=== PATIENT | female | born 1935 | race Caucasian/White ===

== ENCOUNTER 2018-12-22 10:18 | Observation (INO) | payer MEDICARE, OTHER ==
[2018-12-22 11:16] LABS: ADD MAN DIFF? NO
[2018-12-22 11:21] LABS: BASOPHILS % 0.9 % (0.0-2.0); EOSINOPHILS # 0.1 10^3/ul (0.0-0.5); HEMATOCRIT 37.4 % (37.0-47.0); HEMOGLOBIN 12.6 g/dl (12.0-16.0); LYMPHOCYTES % 28.9 % (15.0-51.0); MEAN CORPUSCULAR HEMOGLOBIN 32.5 pg (29.0-33.0); MEAN CORPUSCULAR HGB CONC 33.7 g/dl (32.0-37.0); MEAN CORPUSCULAR VOLUME 96.4 fl (82.0-101.0); MEAN PLATELET VOLUME 9.6 fl (7.4-10.4); MONOCYTE # 0.3 10^3/ul (0.3-0.9); NEUTROPHIL # 2.1 10^3/ul (1.6-7.5); NEUTROPHILS % 59.9 % (39.0-77.0); PLATELET COUNT 214 10^3/UL (140-415); RED BLOOD COUNT 3.88 10^6/ul (4.20-5.40); RED CELL DISTRIBUTION WIDTH 13.5 % (11.5-14.5)
[2018-12-22 11:21] LABS: WHITE BLOOD COUNT 3.5 10^3/ul (4.8-10.8)
[2018-12-22 11:42] LABS: PROTIME 12.3 Sec (11.9-14.9)
[2018-12-22 11:43] LABS: PARTIAL THROMBOPLASTIN TIME 29.9 Sec (23.0-35.0)
[2018-12-22 11:46] LABS: ALANINE AMINOTRANSFERASE 24 IU/L (13-69); ALBUMIN 3.8 g/dl (3.3-4.9); ALBUMIN/GLOBULIN RATIO 1.35; ALKALINE PHOSPHATASE 61 IU/L (42-121); AMYLASE 103 U/L (11-123); ANION GAP 7 (5-13); ASPARTATE AMINO TRANSFERASE 23 IU/L (15-46); BILIRUBIN,INDIRECT 0.5 mg/dl (0-1.1); BILIRUBIN,TOTAL 0.5 mg/dl (0.2-1.3); BLOOD UREA NITROGEN 17 mg/dl (7-20); CALCIUM 9.8 mg/dl (8.4-10.2); CARBON DIOXIDE 25 mmol/L (21-31); CHLORIDE 110 mmol/L (97-110); CREATINE KINASE 91 IU/L (23-200); CREATININE 0.81 mg/dl (0.44-1.00); GLUCOSE 101 mg/dl (70-220); LIPASE 163 U/L (23-300); POTASSIUM 3.7 mmol/L (3.5-5.1); SODIUM 142 mmol/L (135-144); TOTAL PROTEIN 6.6 g/dl (6.1-8.1)
[2018-12-22 11:54] LABS: B-TYPE NATRIURETIC PEPTIDE 375 PG/ML (0-450); CK INDEX 1.9; CK-MB 1.76 ng/ml (0.0-2.4)
[2018-12-22 11:59] LABS: TROPONIN-I < 0.012 ng/ml (0.000-0.120)
[2018-12-22] MEDS ORDERED: NITROGLYCERIN (SL) 0.4 MG TAB SL (13:00)
[2018-12-22] MEDS: ASPIRIN 325 MG TAB PO (13:27)
[2018-12-22] MEDS ORDERED: ONDANSETRON 4 MG INJ IV ×2 (13:30→16:00)
[2018-12-22] MEDS ORDERED: ACETAMINOPHEN 325 MG TAB PO ×2 (13:30→16:00)
[2018-12-22 14:49] LABS: ADD UMIC YES; UR ASCORBIC ACID NEGATIVE (NEGATIVE); UR BACTERIA FEW /HPF (NONE SEEN); UR BILIRUBIN (Dip) NEGATIVE (NEGATIVE); UR BLOOD (Dip) 1+ mg/dL (NEGATIVE); UR CLARITY CLEAR (CLEAR); UR COLOR STRAW (YELLOW); UR GLUCOSE (Dip) NEGATIVE (NEGATIVE); UR KETONES (Dip) TRACE mg/dL (NEGATIVE); UR LEUKOCYTE ESTERASE (Dip) TRACE Leu/ul (NEGATIVE); UR NITRITE (Dip) NEGATIVE (NEGATIVE); UR RBC 1 /HPF (0-5); UR SPECIFIC GRAVITY (Dip) 1.004 (1.003-1.030); UR TOTAL PROTEIN (Dip) NEGATIVE (NEGATIVE); UR UROBILINOGEN (Dip) NEGATIVE (NEGATIVE); UR WBC 0 /HPF (0-5)
[2018-12-22] MEDS ORDERED: NACL 0.9% 3 ML SYG IV (16:00)
[2018-12-22] MEDS ORDERED: IBUPROFEN 800 MG TAB PO (16:00)
[2018-12-22] MEDS ORDERED: [UNRECOGNIZED DRUG - REMARK] XX (17:30)
[2018-12-22] MEDS: NITROGLYCERIN (SL) 0.4 MG TAB SL ×2 (18:27→23:33)
[2018-12-22 18:53] LABS: CREATINE KINASE 87 IU/L (23-200)
[2018-12-22 19:05] LABS: CK INDEX 1.8; CK-MB 1.53 ng/ml (0.0-2.4)
[2018-12-22 19:08] LABS: TROPONIN-I < 0.012 ng/ml (0.000-0.120)
[2018-12-22 19:24] LABS: TROPONIN-I < 0.012 ng/ml (0.000-0.120)
[2018-12-22] MEDS: ATORVASTATIN 10 MG TAB PO (20:18)
[2018-12-22] MEDS: CILOSTAZOL 100 MG TAB PO (20:18)
[2018-12-22] MEDS: CALCIUM CARBONATE 1.25 GM TAB PO (20:18)
[2018-12-22] MEDS: DOCUSATE SODIUM 250 MG CAP PO (20:18)
[2018-12-22] MEDS: METOPROLOL 25 MG TAB PO (21:44)
[2018-12-23] MEDS ORDERED: hydrALAzine 20 MG INJ IV (01:00)
[2018-12-23 02:24] LABS: CREATINE KINASE 67 IU/L (23-200)
[2018-12-23 02:37] LABS: CK INDEX 1.8; CK-MB 1.23 ng/ml (0.0-2.4); TROPONIN-I < 0.012 ng/ml (0.000-0.120)
[2018-12-23] MEDS: PANTOPRAZOLE (EC) 40 MG TAB PO (05:22)
[2018-12-23 06:09] LABS: ADD MAN DIFF? NO
[2018-12-23 06:16] LABS: WHITE BLOOD COUNT 4.9 10^3/ul (4.8-10.8)
[2018-12-23 06:16] LABS: BASOPHILS % 0.6 % (0.0-2.0); EOSINOPHILS # 0.1 10^3/ul (0.0-0.5); EOSINOPHILS % 1.8 % (0.0-7.0); HEMATOCRIT 36.7 % (37.0-47.0); HEMOGLOBIN 12.4 g/dl (12.0-16.0); LYMPHOCYTES % 20.2 % (15.0-51.0); MEAN CORPUSCULAR HGB CONC 33.8 g/dl (32.0-37.0); MEAN CORPUSCULAR VOLUME 97.6 fl (82.0-101.0); MEAN PLATELET VOLUME 9.8 fl (7.4-10.4); MONOCYTE # 0.4 10^3/ul (0.3-0.9); MONOCYTES % 8.1 % (0.0-11.0); NEUTROPHIL # 3.4 10^3/ul (1.6-7.5); NEUTROPHILS % 68.9 % (39.0-77.0); PLATELET COUNT 222 10^3/UL (140-415); RED BLOOD COUNT 3.76 10^6/ul (4.20-5.40); RED CELL DISTRIBUTION WIDTH 13.3 % (11.5-14.5)
[2018-12-23 06:45] LABS: CK-MB 0.95 ng/ml (0.0-2.4); HEMOGLOBIN A1C 5.5 % (0-5.9)
[2018-12-23 06:50] LABS: ALANINE AMINOTRANSFERASE 21 IU/L (13-69); ALBUMIN 3.6 g/dl (3.3-4.9); ALBUMIN/GLOBULIN RATIO 1.56; ALKALINE PHOSPHATASE 50 IU/L (42-121); ANION GAP 5 (5-13); ASPARTATE AMINO TRANSFERASE 22 IU/L (15-46); BILIRUBIN,INDIRECT 0.4 mg/dl (0-1.1); BILIRUBIN,TOTAL 0.4 mg/dl (0.2-1.3); BLOOD UREA NITROGEN 15 mg/dl (7-20); CALCIUM 10.1 mg/dl (8.4-10.2); CARBON DIOXIDE 28 mmol/L (21-31); CHLORIDE 107 mmol/L (97-110); CHOL/HDL RATIO 2.7 RATIO; CHOLESTEROL 138 mg/dl (100-200); CREATININE 0.84 mg/dl (0.44-1.00); GLUCOSE 112 mg/dl (70-220); HDL CHOLESTEROL 51 mg/dl (33-92); LDL CHOLESTEROL,CALCULATED 69 mg/dl; MAGNESIUM 1.9 mg/dl (1.7-2.5); POTASSIUM 4.1 mmol/L (3.5-5.1); SODIUM 140 mmol/L (135-144); TOTAL PROTEIN 5.9 g/dl (6.1-8.1); TRIGLYCERIDES 90 mg/dl (0-149)
[2018-12-23] MEDS: METHOTREXATE 2.5 MG TAB PO ×2 (08:57→12:28)
[2018-12-23] MEDS: ASPIRIN (EC) 81 MG TAB PO (08:58)
[2018-12-23] MEDS: TOLTERODINE 2 MG TAB PO (08:59)
[2018-12-23] MEDS: LOSARTAN 50 MG TAB PO (08:59)
[2018-12-23] MEDS: METOPROLOL 25 MG TAB PO ×2 (09:00→21:14)
[2018-12-23] MEDS: CALCIUM CARBONATE 1.25 GM TAB PO ×2 (09:00→21:14)
[2018-12-23] MEDS: CHOLECALCIFEROL 1,000 UNIT TAB PO (09:00)
[2018-12-23] MEDS: DOCUSATE SODIUM 250 MG CAP PO ×2 (09:01→21:13)
[2018-12-23] MEDS: CILOSTAZOL 100 MG TAB PO ×2 (09:01→21:14)
[2018-12-23] MEDS: FOLIC ACID 1 MG TAB PO (09:01)
[2018-12-23] MEDS: ATORVASTATIN 10 MG TAB PO (21:13)
[2018-12-24] MEDS: PANTOPRAZOLE (EC) 40 MG TAB PO (05:22)
[2018-12-24] MEDS: CALCIUM CARBONATE 1.25 GM TAB PO (08:27)
[2018-12-24] MEDS: CHOLECALCIFEROL 1,000 UNIT TAB PO (08:27)
[2018-12-24] MEDS: DOCUSATE SODIUM 250 MG CAP PO (08:27)
[2018-12-24] MEDS: CILOSTAZOL 100 MG TAB PO (08:27)
[2018-12-24] MEDS: TOLTERODINE 2 MG TAB PO (08:27)
[2018-12-24] MEDS: ASPIRIN (EC) 81 MG TAB PO (08:28)
[2018-12-24] MEDS: LOSARTAN 50 MG TAB PO (08:28)
[2018-12-24] MEDS: FOLIC ACID 1 MG TAB PO (08:28)
[2018-12-24] MEDS: METOPROLOL 25 MG TAB PO (08:28)
== END 2018-12-24 16:25 | disposition home or self-care (01) ==
LOC: 6WM 14:46 → E/R 10:18 → 6WM 13:31
DX: R00.2 Palpitations (principal); M06.9 Rheumatoid arthritis, unspecified; I10 Essential (primary) hypertension; E78.5 Hyperlipidemia, unspecified; I11.0 Hypertensive heart disease with heart failure; I50.9 Heart failure, unspecified; R07.9 Chest pain, unspecified; Z79.82 Long term (current) use of aspirin
CPT/HCPCS: 36415; 71045; 80053; 80061; 81001; 82150; 82550; 82553; 83036; 83690; 83735; 83880; 84100; 84443; 84484; 85025; 85610; 85730; 87086; 93005; 93306; 99285-25; G0378

== ENCOUNTER 2019-02-02 16:46 | Emergency (ER) | payer MEDICARE, OTHER ==
[2019-02-02] MEDS: ALBUTEROL 0.083% (NEB) 2.5 MG/3 ML AMP HHN (18:21)
== END 2019-02-02 19:19 | disposition home or self-care (01) ==
LOC: FTE 16:46
DX: R05 Cough (principal); I10 Essential (primary) hypertension; Z79.82 Long term (current) use of aspirin
CPT/HCPCS: 94664; 99283-25

== ENCOUNTER 2019-03-31 03:15 | Emergency (ER) | payer MEDICARE, OTHER ==
[2019-03-31] MEDS: LIDOCAINE/MYLANTA 40 ML BTL PO (03:51)
[2019-03-31] MEDS: KETOROLAC 30 MG INJ IM (03:52)
[2019-03-31] MEDS: BELLADONNA/PHENOBARBITAL TAB PO (04:28)
[2019-03-31 04:51] LABS: TROPONIN-I < 0.012 ng/ml (0.000-0.120)
== END 2019-03-31 06:14 | disposition home or self-care (01) ==
LOC: E/R 03:15
DX: K59.01 Slow transit constipation (principal); F51.01 Primary insomnia; I10 Essential (primary) hypertension; J44.9 Chronic obstructive pulmonary disease, unspecified; Z79.82 Long term (current) use of aspirin
CPT/HCPCS: 36415; 84484; 93005; 96372; 99284-25